=== PATIENT | female | born 1965 | race Caucasian/White ===

== ENCOUNTER 2018-03-19 18:09 | Emergency (ER) | payer OTHER ==
[2018-03-19 19:41] LABS: ADD MAN DIFF? NO
[2018-03-19 19:48] LABS: WHITE BLOOD COUNT 13.2 10^3/ul (4.8-10.8)
[2018-03-19 19:48] LABS: BASOPHILS % 0.2 % (0.0-2.0); EOSINOPHILS # 0.2 10^3/ul (0.0-0.5); EOSINOPHILS % 1.4 % (0.0-7.0); HEMATOCRIT 38.7 % (37.0-47.0); HEMOGLOBIN 11.9 g/dl (12.0-16.0); LYMPHOCYTES # 3.3 10^3/ul (0.8-2.9); LYMPHOCYTES % 24.8 % (15.0-51.0); MEAN CORPUSCULAR HEMOGLOBIN 24.1 pg (29.0-33.0); MEAN CORPUSCULAR HGB CONC 30.7 g/dl (32.0-37.0); MEAN CORPUSCULAR VOLUME 78.3 fl (82.0-101.0); MEAN PLATELET VOLUME 10.8 fl (7.4-10.4); MONOCYTE # 0.6 10^3/ul (0.3-0.9); MONOCYTES % 4.3 % (0.0-11.0); NEUTROPHIL # 9.1 10^3/ul (1.6-7.5); NEUTROPHILS % 68.8 % (39.0-77.0); PLATELET COUNT 214 10^3/UL (140-415); RED BLOOD COUNT 4.94 10^6/ul (4.20-5.40); RED CELL DISTRIBUTION WIDTH 15.8 % (11.5-14.5)
[2018-03-19 20:07] LABS: ANION GAP 9 (5-13); BLOOD UREA NITROGEN 23 mg/dl (7-20); CALCIUM 9.4 mg/dl (8.4-10.2); CARBON DIOXIDE 32 mmol/L (21-31); CHLORIDE 101 mmol/L (97-110); CREATININE 0.94 mg/dl (0.44-1.00); Estimated GFR > 60 mL/min (>60); GLUCOSE 133 mg/dl (70-220); POTASSIUM 3.7 mmol/L (3.5-5.1); PROTIME 12.3 Sec (11.9-14.9); SODIUM 142 mmol/L (135-144)
[2018-03-19 20:08] LABS: PARTIAL THROMBOPLASTIN TIME 29.4 Sec (23.0-35.0)
== END 2018-03-19 21:17 | disposition home or self-care (01) ==
LOC: E/R 18:09
DX: I80.01 Phlebitis and thrombophlebitis of superficial vessels of right lower extremity (principal); E11.9 Type 2 diabetes mellitus without complications; I10 Essential (primary) hypertension; Z79.84 Long term (current) use of oral hypoglycemic drugs
CPT/HCPCS: 36415; 80048; 85025; 85610; 85730; 93971; 99284-25

== ENCOUNTER 2018-09-01 07:46 | Day surgery (SDC) | payer OTHER ==
[~2018-09-01 07:46] MED LIST: LACTATED RINGER'S 1,000 ML IV
[2018-09-01] MEDS ORDERED: KETAMINE (50 MG/ML) 10 ML VIAL (10:13)
[2018-09-01] MEDS ORDERED: MIDAZOLAM 1 MG/ML 2 ML INJ (10:13)
[2018-09-01] MEDS ORDERED: FENTAnyl 50 MCG/ML VIAL (10:22)
[2018-09-01] MEDS ORDERED: CEFAZOLIN 1 GM INJ (10:27)
[2018-09-01] MEDS ORDERED: ONDANSETRON 4 MG INJ IV (11:30)
[2018-09-01] MEDS ORDERED: OXYCODONE/ACETAMINOPHEN (5/325) TAB PO (11:30)
[2018-09-01] MEDS ORDERED: hydrALAzine 20 MG INJ IV (11:30)
[2018-09-01] MEDS ORDERED: LABETALOL HCL 20MG INJ IV (11:30)
[2018-09-01] MEDS ORDERED: FENTAnyl 50 MCG/ML VIAL IV (12:00)
[2018-09-01] MEDS: EPHEDrine 25 MG/5 ML SYG IV (12:21)
[2018-09-01] MEDS: SOD CHLORIDE 0.9% 1,000 ML IV (12:52)
== END 2018-09-01 18:05 | disposition home or self-care (01) ==
LOC: SDS 07:46
DX: N95.0 Postmenopausal bleeding (principal); D25.9 Leiomyoma of uterus, unspecified; I10 Essential (primary) hypertension; E78.5 Hyperlipidemia, unspecified; E11.9 Type 2 diabetes mellitus without complications
CPT/HCPCS: 58558; 82962; 88305